=== PATIENT | male | born 1985 | race African-American/Black ===

== ENCOUNTER 2020-10-17 13:23 | Emergency (ER) | payer BC, MEDICAID ==
[~2020-10-17] VITALS: Ht 190.5 cm; Wt 100.0 kg
[2020-10-17] MEDS ORDERED: DEXAMETHASONE 4MG/ML 1ML VIAL IV ONE (13:45)
[2020-10-17] MEDS ORDERED: MORPHINE SULFATE 4 MG/ML CPJ (NOT FOR IM USE) IV ONE ×2 (13:45→15:45)
[2020-10-17] MEDS: ALBUTEROL (0.083%) 2.5MG/3ML NEB HHN SCH ×3 (14:00→14:41)
[2020-10-17 14:21] LABS: BASOPHILS % 0.8 % (0.0-2.0); EOSINOPHILS % 0.2 % (0.0-5.0); HEMATOCRIT. 42.1 % (42.0-52.0); HEMOGLOBIN. 13.4 g/dL (14.0-18.0); LYMPHOCYTES % 15.3 % (20.0-50.0); MEAN CORPUSCULAR HEMOGLOBIN 25.3 pg (28.0-32.0); MEAN CORPUSCULAR VOLUME 79.6 fL (80.0-94.0); MEAN PLATELET VOLUME 8.8 fl (7.4-10.4); MONOCYTES % 9.7 % (2.0-8.0); PLATELET 231 x1000/uL (130-400); RED BLOOD CELL COUNT 5.29 mill/uL (4.7-6.1); RED CELL DISTRIBUTION WIDTH 15.1 % (11.6-14.6)
[2020-10-17 14:28] LABS: CHLORIDE 109 mEq/L (98-107)
[2020-10-17] MEDS ORDERED: KETOROLAC 30MG/ML VIAL IV ONE (15:45)
[2020-10-17] MEDS ORDERED: LORAZEPAM 2MG/ML CPJ IV ONE (17:45)
[2020-10-17 21:00] VITALS: BP 143/95
[2020-10-17] MEDS ORDERED: ACETAMINOPHEN 325MG TABLET PO ONE (21:00)
[2020-10-17] MEDS ORDERED: KETOROLAC 15MG/ML VIAL IV ONE (21:00)
[2020-10-17] MEDS ORDERED: IOHEXOL-350 100 ML BOTTLE ONE (22:49)
== END 2020-10-17 21:47 | disposition home or self-care (01) ==
LOC: ER 14:16
DX: U07.1 COVID-19 (principal); S20.212A Contusion of left front wall of thorax, initial encounter; J45.909 Unspecified asthma, uncomplicated; W18.30XA Fall on same level, unspecified, initial encounter; Y93.89 Activity, other specified; Y92.89 Other specified places as the place of occurrence of the external cause; Y99.8 Other external cause status
CPT/HCPCS: 36415; 71045; 71275; 80053; 83880; 84484; 85025; 85379; 93005; 94640; 96374; 96375; 96376; 99285; J1100; J1885; J2060; J2270; Q9967; Z7610